=== PATIENT | male | born 1975 | race Caucasian/White ===

== ENCOUNTER 2019-06-29 14:20 | Emergency (ER) | payer OTHER ==
[~2019-06-29] VITALS: Ht 175.3 cm; Wt 81.7 kg
[2019-06-29] MEDS ORDERED: KEFLEX500 M1 PO (15:40)
[2019-06-29 15:49] VITALS: BP 140/82
== END 2019-06-29 15:49 | disposition home or self-care (01) ==
LOC: M.ERS 14:20
DX: S91.311A Laceration without foreign body, right foot, initial encounter (principal); W26.8XXA Contact with other sharp object(s), not elsewhere classified, initial encounter; Y92.009 Unspecified place in unspecified non-institutional (private) residence as the place of occurrence of the external cause; Y93.89 Activity, other specified; Y99.8 Other external cause status